=== PATIENT | female | born 1965 | race Caucasian/White ===

== ENCOUNTER 2017-11-28 22:17 | Observation (INO) ==
[2017-11-28 22:51] LABS: Basophils % 0.2 %; Eosinophils # 0.2 K/mcL (0.0-0.6); Eosinophils % 3.7 %; Hematocrit 42.6 % (35.3-44.9); Hemoglobin 13.9 g/dL (11.5-15.4); Immature Granulocytes % 0.4 % (0-4); Lymphocytes # 0.6 K/mcL (0.6-4.6); Lymphocytes % 13.1 %; Mean Corpuscular HGB Conc 32.6 g/dL (31.6-35.5); Mean Corpuscular Hemoglobin 27.4 pg (28.0-33.3); Mean Platelet Volume 9.8 fL (9.4-12.4); Monocytes # 0.5 K/mcL (0.0-1.3); Neutrophils # 3.5 K/mcL (1.6-8.9); Platelet Count 252 K/mcL (140-400); Red Blood Count 5.07 M/mcL (3.82-4.97); Red Cell Distribution Width 13.3 % (11.5-14.5); Segmented Neutrophils % 71.6 %
[2017-11-28] MEDS ORDERED: 0.9 % Sodium Chloride 1,000 ML IVC ONE (23:06)
[2017-11-28 23:07] LABS: BUN/Creatinine Ratio 18 (6-26); Blood Urea Nitrogen 14 mg/dL (6-20); Calcium 9.4 mg/dL (8.6-10.3); Carbon Dioxide 28 mEq/L (23-29); Chloride 101 mEq/L (98-107); Glucose 100 mg/dL (70-105); Osmolality,Calculated 281 (280-300); Sodium 135 mEq/L (136-145); eGFR For African Americans > 60 (> 60); eGFR For Non-African Americans > 60 (> 60)
--- NOTE | 2017-11-28 23:13 | Emergency Department Note ---
Disposition Clinical Impression: Chest pain at rest Disposition: Admitted As Inpatient Condition: Fair Time of Disposition: 01:34 Chest Pain HPI - General Chief Complaint: ED Chest Pain Stated Complaint: chest pain Time Seen by Provider: 11/28/17 22:44 Source: patient Limitations: no limitations Vital Signs Reviewed: Yes Nursing Notes Reviewed: Yes - History of Present Illness HPI Narrative: Patient is a 52-year-old female complains of sudden onset of mid substernal chest pain sharp stabbing in character with heavy crushing pressure and bilateral posterior neck pain, occipital head pain and acute loss of vision 30 minutes that started 1 hour ago. Patient states she was sitting at rest when symptoms came on. Patient states she has never had symptoms like this before. Patient states after 30 minutes she had a vision back and the symptoms of pain reduced significantly but did go a [place] until she was almost at the emergency department. Patient complains of lightheadedness and feeling off balance when she walks after the onset of symptoms. Patient currently has no pain symptoms but states she has numbing tingling feeling to her neck and back of the head. Patient did not taken nothing for pain. 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 Patient states she is not in place on any anticoagulants. Other medical history is for hypertension but not currently on medications. Severity scale (1-10): 5 - Related Data Home Medications Medication Instructions Recorded Confirmed Aspirin [Lo-Dose Aspirin EC] 81 mg PO DAILY 08/11/17 08/11/17 FLUoxetine HCl [Fluoxetine HCl] 40 mg PO DAILY 08/11/17 08/11/17 HydrOXYzine 10 mg PO QID PRN 08/11/17 08/11/17 Ibuprofen [Ibuprofen] 800 mg PO TID PRN 08/11/17 08/11/17 Previous Rx's Medication Instructions Recorded Ibuprofen [Motrin] 600 mg PO Q6HR PRN #60 tab 08/11/17 Allergies Allergy/AdvReac Type Severity Reaction Status Date / Time Penicillins Allergy Intermediate Rash Verified 11/29/17 00:13 Erythromycin Base Allergy Rash Verified 11/29/17 00:13 [From Erythrocin] All systems ED: reviewed and negative except as stated. Review of Systems: As Per HPI Constitutional: Denies: fever, chills, weakness Eyes: Reports: vision change. Denies: eye pain, eye discharge ENT ED: Denies: hearing loss, congestion Cardiovascular: Reports: chest pain. Denies: palpitations Respiratory: Reports: dyspnea. Denies: cough, wheezes Gastrointestinal: Denies: abdominal pain, nausea, vomiting, diarrhea Chest Pain PMH - Past Medical History Medical history: Reports: DVT Psychiatric history: Reports: no psych history - Social History Smoking Status: Current every day smoker Alcohol use: Reports: none Drug use: Reports: none Physical Exam Vital Signs Temperature 97.6 F 11/28/17 22:24 Pulse Rate 99 11/28/17 22:24 Respiratory Rate 20 11/28/17 22:24 Blood Pressure 153/100 11/28/17 22:24 O2 Sat by Pulse Oximetry 98 11/28/17 22:24 Temperature 97.6 F 11/28/17 22:24 Pulse Rate 99 11/28/17 22:24 Respiratory Rate 20 11/28/17 22:24 Blood Pressure 153/100 11/28/17 22:24 O2 Sat by Pulse Oximetry 98 11/28/17 22:24 Oxygen Delivery Oxygen Delivery Room Air CONSTITUTIONAL: Well-appearing; well-nourished; A&O X 3, in no apparent distress, GCS 15, NIH stroke score of 1 HEAD: Normocephalic; atraumatic EYES: PERRL, no scleral icterus NOSE: The nose is normal in appearance without rhinorrhea NECK: No JVD or distended neck veins RESP: Normal chest excursion with respiration; breath sounds clear and equal bilaterally; no wheezes, rhonchi, or rales CARD: Regular rhythm, without murmurs, rub or gallop ABD: Non-distended; non-tender, soft, without rigidity, rebound or guarding,no pulsatile mass CHEST: No pain with palpation SKIN: Normal for age and race; warm and dry without diaphoresis ; no apparent lesions EXTREMITIES: Pulses are 2 plus and equal times 4 extremities, no peripheral edema or calf muscle pain NEUROLOGICAL: Patient is alert and oriented times three. Cranial nerves III- XII are intact. Sensory and motor functions are intact but slightly diminished in the right cheek and right lower extremity. Strength is 5/5 for flexion and extension in all 4 extremities. Patellar DTRS are equal and intact. Finger to nose testing is equal and normal bilaterally. No dysdiadochokinesis, she was ambulated in the room and was able to walk without falling. Patient is able to stand with eyes closed with no complete loss of balance. She teetered backwards slightly but was able to compensate without opening her eyes. - General Limitations: no limitations General appearance: alert, in no apparent distress Course - Reevaluation(s) Reevaluation #1: Patient currently has no numbness in her foot. Patient states that her vision is fully clear now. Time: 23:24 Reevaluation #2: Patient doing well. No complaints. Patient's loss of sensation to the right cheek also resolved. Time: 23:53 Reevaluation #3: Patient was updated on the results of her CTs which showed no vascular abnormalities. But did show Asymmetric glandular right breast soft tissue only. Patient is advised for immediate follow-up for mammography. Time: 01:24 - Consultations Consultation #1: I discussed patient's case with Dr. Tadeo the hospitalist. Abdomen the patient is in stable condition currently. No vascular abnormalities found on advanced imaging, however patient has Asymmetric glandular right breast soft tissue only. He states he will investigate further. Time: 01:27 Vital Signs Temperature 97.6 F 11/28/17 22:24 Pulse Rate 99 11/28/17 22:24 Respiratory Rate 20 11/28/17 22:24 Blood Pressure 153/100 11/28/17 22:24 O2 Sat by Pulse Oximetry 98 11/28/17 22:24 Temperature 97.6 F 11/28/17 22:24 Pulse Rate 93 11/29/17 01:32 Respiratory Rate 18 11/29/17 01:32 Blood Pressure 125/76 11/29/17 01:32 O2 Sat by Pulse Oximetry 98 11/29/17 01:32 Oxygen Delivery Oxygen Delivery Room Air Chest Pain - MDM Narrative Medical decision making narrative: Patient's concerning for possible vertebral artery dissection/carotid artery dissection, TIA/stroke, ACS/TX, PE aortic dissection. Patient has previous history of unprovoked DVT but is still low risk on Wells score for PE: No clinical signs of DVT, PE is not my #1 diagnosis, heart rate is less than 100, she has not had any immobilization for 3 days or surgery in the previous 4 weeks, she denies hemoptysis and denies history of malignancy. CBC, BMP, troponin and chest x-ray ordered for concern of ACS/TX. CT head non- contrast and CTA head and neck ordered for concerns for vertebral artery/ carotid artery dissection. His heart score is 3 Patient's lab work was clinically unremarkable. Patient advanced imaging studies negative for vertebral artery dissection, carotid artery dissection, aortic dissection, AAA. However Asymmetric glandular right breast soft tissue per radiology was identified on CT a chest. Patient has been updated on these findings and mammography was highly recommended. Patient states she will make the necessary follow-up. They should accepts this and for admission for further cardiac evaluation. Patient is accepted for admission by Dr. Siu hospitalists in stable condition. Patient is currently pain-free. - Lab Data Lab results reviewed: Yes I reviewed the patient's lab results. Lab results narrative: Short CBC 11/28/17 Range/Units 22:44 WBC 4.9 (4.3-11.1) K/mcL Hgb 13.9 (11.5-15.4) g/dL Hct 42.6 (35.3-44.9) % Plt Count 252 (140-400) K/mcL Neutrophils # 3.5 (1.6-8.9) K/mcL BMP 11/28/17 Range/Units 22:44 Sodium 135 L (136-145) mEq/L Potassium 4.0 (3.5-5.1) mEq/L Chloride 101 (98-107) mEq/L Carbon Dioxide 28 (23-29) mEq/L BUN 14 (6-20) mg/dL Creatinine 0.77 (0.60-1.20) mg/dL Glucose 100 (70-105) mg/dL Calcium 9.4 (8.6-10.3) mg/dL Cardiac Enzymes 11/28/17 Range/Units 22:44 Troponin I < 0.03 (< 0.04) ng/mL Result diagrams: 11/28/17 22:44 11/28/17 22:44 Lab Results 11/28/17 11/28/17 11/28/17 Range/Units 22:44 22:44 22:44 WBC 4.9 (4.3-11.1) K/mcL RBC 5.07 H (3.82-4.97) M/mcL Hgb 13.9 (11.5-15.4) g/dL Hct 42.6 (35.3-44.9) % MCV 84.0 (83.0-100.0) fL MCH 27.4 L (28.0-33.3) pg MCHC 32.6 (31.6-35.5) g/dL RDW 13.3 (11.5-14.5) % Plt Count 252 (140-400) K/mcL MPV 9.8 (9.4-12.4) fL Immature Gran % 0.4 (0-4) % Seg Neutrophils % 71.6 % Lymphocytes % 13.1 % Monocytes % 11.0 % Eosinophils % 3.7 % Basophils % 0.2 % Neutrophils # 3.5 (1.6-8.9) K/mcL Lymphocytes # 0.6 (0.6-4.6) K/mcL Monocytes # 0.5 (0.0-1.3) K/mcL Eosinophils # 0.2 (0.0-0.6) K/mcL Basophils # 0.0 (0.0-0.2) K/mcL PT (9.4-12.1) Seconds INR APTT (26.0-36.0) Seconds Sodium 135 L (136-145) mEq/L Potassium 4.0 (3.5-5.1) mEq/L Chloride 101 (98-107) mEq/L Carbon Dioxide 28 (23-29) mEq/L BUN 14 (6-20) mg/dL Creatinine 0.77 (0.60-1.20) mg/dL Est GFR ( Amer) > 60 (> 60) Est GFR (Non-Af Amer) > 60 (> 60) BUN/Creatinine Ratio 18 (6-26) Glucose 100 (70-105) mg/dL Calculated Osmolality 281 (280-300) Calcium 9.4 (8.6-10.3) mg/dL Troponin I < 0.03 (< 0.04) ng/mL 11/28/17 Range/Units 22:44 WBC (4.3-11.1) K/mcL RBC (3.82-4.97) M/mcL Hgb (11.5-15.4) g/dL Hct (35.3-44.9) % MCV (83.0-100.0) fL MCH (28.0-33.3) pg MCHC (31.6-35.5) g/dL RDW (11.5-14.5) % Plt Count (140-400) K/mcL MPV (9.4-12.4) fL Immature Gran % (0-4) % Seg Neutrophils % % Lymphocytes % % Monocytes % % Eosinophils % % Basophils % % Neutrophils # (1.6-8.9) K/mcL Lymphocytes # (0.6-4.6) K/mcL Monocytes # (0.0-1.3) K/mcL Eosinophils # (0.0-0.6) K/mcL Basophils # (0.0-0.2) K/mcL PT 10.7 (9.4-12.1) Seconds INR 1.0 APTT 30.2 (26.0-36.0) Seconds Sodium (136-145) mEq/L Potassium (3.5-5.1) mEq/L Chloride (98-107) mEq/L Carbon Dioxide (23-29) mEq/L BUN (6-20) mg/dL Creatinine (0.60-1.20) mg/dL Est GFR ( Amer) (> 60) Est GFR (Non-Af Amer) (> 60) BUN/Creatinine Ratio (6-26) Glucose (70-105) mg/dL Calculated Osmolality (280-300) Calcium (8.6-10.3) mg/dL Troponin I (< 0.04) ng/mL - Radiology Data Radiology results reviewed: Yes I reviewed the patient's radiology results. Chest X-Ray 11/28/17 22:28 IMPRESSION: No acute findings. D/ / Gianluca Alcala / Gianluca Alcala Interpreting Provider: Gianluca Alcala Angiography CT 11/28/17 23:03 IMPRESSION: 1. No acute intracranial abnormality. 2. Unremarkable CTA of the head. D/ / Eitan Cast MD / Eitan Cast MD Interpreting Provider: Eitan Cast MD Neck CTA 11/28/17 23:03 IMPRESSION: Unremarkable CTA of the neck. D/ / Eitan Cast MD / Eitan Cast MD Interpreting Provider: Eitan Cast MD Chest CTA 11/28/17 23:37 IMPRESSION: No evidence of an acute aortic syndrome. No acute nonvascular findings in the chest, abdomen or pelvis. Mild mediastinal lymphadenopathy, right supraclavicular and axillary lymph lymphadenopathy is nonspecific. Prior comparison imaging would be helpful available. Otherwise consider follow-up imaging in 3 months. Mildly asymmetric right breast glandular tissues compared with the left. Correlate with mammography. Mild hepatosplenomegaly with hepatic steatosis. D/ / Gianluca Alcala / Gianluca Alcala Interpreting Provider: Gianluca Alcala Abdomen/Pelvis CTA 11/28/17 23:38 IMPRESSION: No evidence of an acute aortic syndrome. No acute nonvascular findings in the chest, abdomen or pelvis. Mild mediastinal lymphadenopathy, right supraclavicular and axillary lymph lymphadenopathy is nonspecific. Prior comparison imaging would be helpful available. Otherwise consider follow-up imaging in 3 months. Mildly asymmetric right breast glandular tissues compared with the left. Correlate with mammography. Mild hepatosplenomegaly with hepatic steatosis. D/ / Gianluca Alcala / Gianluca Alcala Interpreting Provider: Gianluca Alcala - EKG Data EKG attestation: Yes I reviewed and interpreted this EKG. EKG results narrative: EKG taken 2017 at 2229 hrs. shows sinus rhythm at a rate of [address] elevations or depressions in any leads, no QRS widening or QT prolongation. Patient has no previous EKG for comparison. No Brugada, no Wellens Heart Score - Score History: Moderately Suspicious EKG: Normal Age: 45-65 Risk Factors: 1-2 risk factors Troponin: Less than normal limit HEART Score Total: 3 Attestation Statement - Attestation Attestation: I examined this patient and my medical decision-making was reviewed with the Resident Physician. I agree with the documented findings, disposition and treatment plan as described except to the extent set forth below. Patient to the ED with chest pain. Patient states she was sitting at home talking to her and she expressed chest pain that shot into her back. States it lasted about 20-30 minutes and resolved spontaneously. She felt really off balance and shaky after happened. This is resolved. She states she feels back to normal now. No history of coronary disease. Patient awake and alert on examination. She is neurologically intact for me. NIH 0. Lungs clear. Plan. Cardiac workup a CTA chest abdomen pelvis to rule out dissection.
[2017-11-28 23:32] LABS: Prothrombin Time 10.7 Seconds (9.4-12.1)
[2017-11-28 23:35] LABS: Activated Partial Thrombo Time 30.2 Seconds (26.0-36.0)
[2017-11-29] MEDS ORDERED: Naloxone 0.4 MG/ML INJ IVP PRN (02:43)
[2017-11-29] MEDS ORDERED: Acetaminophen 325 MG TABLET PO PRN (02:48)
[2017-11-29] MEDS ORDERED: Ondansetron 4 MG/2 ML VIAL IVP PRN (02:48)
[2017-11-29] MEDS ORDERED: *HR* Promethazine 25 MG/ML VIAL IVP PRN (02:48)
[2017-11-29] MEDS ORDERED: *HR* HYDROcodone/Acet 5/325 mg TABLET PO PRN (02:48)
[2017-11-29] MEDS ORDERED: Nitroglycerin 0.4 MG TAB.SUBL SL PRN (02:51)
--- NOTE | 2017-11-29 04:13 | Internal Med History&Physical ---
Date of Encounter: 11/29/17 Time of Encounter: 01:30 Assessment and Plan (1) Chest pain Current visit: Yes Status: Acute Will admit the pt into Tele for observation Will place pt on hall monitor check serial troponin so far negative troponin EKG reviewed NSR , NO ST T changes noticed will continue pt on ASA and give Nitro PRN for chest pain Will check FLP in AM Will get stress test in AM since pt is high risk for ACS Qualifiers: Qualified Code(s): R07.9 - Chest pain, unspecified (2) HTN (hypertension) Current visit: Yes Status: Acute stable and well controlled resumed home meds Qualifiers: Qualified Code(s): I10 - Essential (primary) hypertension (3) Axillary lymphadenopathy Current visit: Yes Status: Acute Reviewed CTA of Chest showed axillary and supra clavicular lymphadenopathy on Rt side also her Rt breast glandular tissue was asymmetric compare to left need further work up .. Mammogram will get U/S of Rt breast for now Unable to do physical exam in the ER (4) Anxiety Current visit: Yes Status: Acute resumed home meds Internal Medicine - H&P: HPI Chief complaint: Chest pain Admitted From: Emergency Dept Plans for Post Hospital Care: Home History of present illness: Ms. Springer is a 52 year old female with known anxiety, depression who also had DVT in the past, now she presented to ER with c/o Left chest pain radiating to her neck and back of the head. She stated her pain was 6/10, crushing / pressure like pain and relieved with Nitro here in the ER. She also c/o some left breast pain. Denied any SOB . Pt had further work up done in the ER, had CTA of Head, CTA of Neck, Chest, Abd and Plevis everything was benign except mild mediastinal lymphadenopathy, rt supra clavicular and axillary lymphadenopathy . Also noticed mild asymmetric Rt breast glandular tissue compared to the left. Past Med Surg Social Fam HX - Past Medical History Medical history: DVT Psychiatric history: no psych history - Social History Smoking Status: Current every day smoker Smokeless Tobacco Status: No Alcohol use: none Drug use: none - Family History Brother Hx Family Cardiac Disorders: Yes (Had TX in 40's) Father Hx Family Cardiac Disorders: Yes (Had TX in 40's) Internal Medicine - H&P: Meds Aspirin [Lo-Dose Aspirin EC] 81 mg PO DAILY 08/11/17 [History] FLUoxetine HCl [Fluoxetine HCl] 40 mg PO DAILY 08/11/17 [History] HydrOXYzine 10 mg PO QID PRN 08/11/17 [History] Ibuprofen [Ibuprofen] 800 mg PO TID PRN 08/11/17 [History] Ibuprofen [Motrin] 600 mg PO Q6HR PRN #60 tab 08/11/17 [Rx] 3 Allergy/AdvReac Type Severity Reaction Status Date / Time Penicillins Allergy Intermediate Rash Verified 11/29/17 00:13 Erythromycin Base Allergy Rash Verified 11/29/17 00:13 [From Erythrocin] All Systems PM: A 10-system review of systems was performed and is negative for pertinent findings except as documented above in the HPI. Review of systems: All the systems are reviewed everything is benign except the systems and symptoms I mentioned in the history of present illness - Constitutional Vitals: Temp Pulse Resp BP Pulse Ox 98.1 F 89 16 116/65 96 11/29/17 03:54 11/29/17 03:54 11/29/17 03:54 11/29/17 03:54 11/29/17 03:54 General appearance: Present: cooperative, A&O X 3, answers questions appropriately - Head Head exam: Present: atraumatic, normal inspection - Neck Neck exam general surgery: Present: supple - Respiratory Respiratory exam: Present: decreased breath sounds. Absent: rales, respiratory distress, rhonchi, wheezes - Cardiovascular Cardiovascular exam: Present: RRR, +S1, +S2. Absent: tachycardia - GI/Abdominal GI/Abdominal exam: Present: normal bowel sounds, soft. Absent: rebound, rigid, tenderness - Extremities Exam Extremities exam: Absent: calf tenderness, pedal edema, tenderness - Back Exam Back exam: Absent: CVA tenderness (L), CVA tenderness (R) - Neurological Exam Neurological exam: Present: alert, oriented X3, reflexes normal, no focal deficits, strengths equal and symetr throughout. Absent: pronater drift, facial droop, speech deficit - Psychiatric Psychiatric exam: Present: normal affect, normal mood - Skin Skin exam: Absent: rash Internal Med - H&P Results - Labs CBC & Chem 7: 11/28/17 22:44 11/28/17 22:44
[2017-11-29 05:15] LABS: Chol/HDL Ratio 5.6 (0-4.9)
[2017-11-29] MEDS: FLUoxetine 20 MG CAPSULE PO SCH (08:18)
[2017-11-29] MEDS: Aspirin Enteric Coated 81 MG Tablet PO SCH (08:18)
[2017-11-29] MEDS ORDERED: 0.9 % Sodium Chloride 1,000 ML ONE (14:38)
[2017-11-29] MEDS: Heparin 25,000 UNIT/500 ML D5W 25,000 UNIT/500 ML BAG IVC SCH (14:51)
--- NOTE | 2017-11-29 17:10 | Event Note ---
Date of Encounter: 11/29/17 Time of Encounter: 14:00 Seen and examined at bedside. Patient is new to me, information obtained from chart review and patient report. In summary patient is a 52-year-old female with no known cardiac disease. Presented to the emergency room with acute episode of chest pain and shortness of breath. Initial troponin negative however trended up to 0.11. Chest pain now resolved. 1. Chest pain: Presented with acute episode of chest pain and shortness of breath. CXR nonacute. Chest CTA negative for pulmonary embolism or acute aortic syndrome. Serial troponins 0.03, 0.08, 0.11. Discussed with cardiology and will start heparin drip, NPO at midnight. Echo pending. Cont ASA. 2. Hyperlipidemia: start statin
[2017-11-29] MEDS ORDERED: *HR* Heparin 5,000 UNIT/ML VIAL IVP PRN ×2 (22:09)
[2017-11-30 05:47] LABS: BUN/Creatinine Ratio 19 (6-26); Blood Urea Nitrogen 12 mg/dL (6-20); Calcium 8.9 mg/dL (8.6-10.3); Carbon Dioxide 27 mEq/L (23-29); Chloride 107 mEq/L (98-107); Glucose 103 mg/dL (70-105); Osmolality,Calculated 288 (280-300); Potassium 4.1 mEq/L (3.5-5.1); Sodium 139 mEq/L (136-145); eGFR For African Americans > 60 (> 60); eGFR For Non-African Americans > 60 (> 60)
[2017-11-30 05:48] LABS: Hematocrit 36.2 % (35.3-44.9); Mean Corpuscular Hemoglobin 27.4 pg (28.0-33.3); Mean Corpuscular Volume 85.6 fL (83.0-100.0); Mean Platelet Volume 10.5 fL (9.4-12.4); Platelet Count 186 K/mcL (140-400); Red Blood Count 4.23 M/mcL (3.82-4.97); Red Cell Distribution Width 13.6 % (11.5-14.5)
[2017-11-30 05:51] LABS: Hemoglobin 11.6 g/dL (11.5-15.4)
[2017-11-30] MEDS ORDERED: Regadenoson 0.4 MG/5 ML SYRINGE IVP ONE (07:17)
[2017-11-30] MEDS: Perflutren Lipid Microsphere 1.3 ML in 0.9 % Sodium Chloride 8.7 ML IVP ONE ×2 (08:46→08:55)
[2017-11-30] MEDS: Aspirin Enteric Coated 81 MG Tablet PO SCH (08:49)
[2017-11-30] MEDS: FLUoxetine 20 MG CAPSULE PO SCH (08:49)
--- NOTE | 2017-11-30 09:11 | Cardiology Consult Note ---
<Jeffry Sanchez - Last Filed: 11/30/17 10:53> Date of Encounter: 11/30/17 Time of Encounter: 09:09 Assessment and Plan (1) NSTEMI (non-ST elevated myocardial infarction) Current Visit: Yes Status: Acute Troponin elevation, 0.08, 0.11, 0.08. EKG shows SR with no acute changes. CTA was negative for PE. Cardiac risk factors include family history, HTN, HLD. C R/B/A discussed and she agrees to proceed. Heprin gtt. Asa, statin, and bb. (2) HTN (hypertension) Current Visit: Yes Status: Acute B/p 150/100 on admit. Now acceptable.Continue to monitor. Qualifiers: Hypertension type: essential hypertension Qualified Code(s): I10 - Essential (primary) hypertension Discussion w patient/family: The assessment and plan as outlined above was discussed with the patient and/or family members who expressed understanding and agreement. All questions were answered. Thank you for involving us in the care of your patient. Please call with any questions. History of Present Illness Consult date: 11/30/17 Requesting physician: Luz Maria Shearer Consult reason: Chest pain, trop elevation Chief complaint: Chest pain History of present illness: Ms. Springer is a 52 year old female with a past medical history of HTN and HLD who presents with chest pain. C/o 30 min to one hour of midsternal sharp chest pain radiating to the back of her neck and head. She also experienced SOB and nausea. The pain went away on its own. Denies aggravating factors. Cardiology consulted for NSTEMI. Troponin found to be elevated up to 0.11. Past Med Surg Social Fam HX - Past Medical History Attestation: Yes The following information was validated with the patient. Medical history: hyperlipidemia, hypertension Psychiatric history: anxiety, depression, PTSD, prior suicide attempt - Past Surgical History Surgical History: appendectomy, , cholecystectomy - Social History Smoking Status: 2nd Hand Smoke Exposure Smokeless Tobacco Status: No Alcohol use: none Drug use: none - Family History Brother Hx Family Cardiac Disorders: Yes (Had [place] in 40's) Father Hx Family Cardiac Disorders: Yes (Had [place] in 40's) Medications and Allergies Aspirin [Lo-Dose Aspirin EC] 81 mg PO DAILY 08/11/17 [History] FLUoxetine HCl [Fluoxetine HCl] 40 mg PO DAILY 08/11/17 [History] HydrOXYzine 25 mg PO BID PRN 08/11/17 [History] Ibuprofen [Ibuprofen] 800 mg PO TID PRN 08/11/17 [History] 3 Allergy/AdvReac Type Severity Reaction Status Date / Time Penicillins Allergy Intermediate Rash Verified 11/29/17 00:13 Erythromycin Base Allergy Rash Verified 11/29/17 00:13 [From Erythrocin] All Systems Review: A 10-system review of systems was performed and is negative for pertinent findings except as documented above in the HPI. Physical Examination Vital Signs, Last 4 Hours Temp Pulse Resp BP Pulse Ox 11/30/17 08:45 97 11/30/17 07:09 98.7 F 78 16 127/76 97 General: Conversant, No Apparent Distress HEENT: Atraumatic, Normocephaly, Mucus Membranes Moist Neck: No JVD, Normal carotid pulses Cardiac: Reg Rate and Rhythm, Normal S1 and S2, No Murmur Lungs: Normal Breath Sounds, No Wheeze, Rales, Rhonchi Neuro: Alert and responsive, No focal deficits noted Abdomen: Soft, Non-Tender Skin: No rashes noted on visualized skin Musculoskeletal: No Chest Wall Tenderness Extremities: No Clubbing, No Cyanosis, No Edema, Normal Pulses Results 11/30/17 04:38 11/30/17 04:38 Lab Results 11/29/17 11/29/17 11/29/17 09:14 13:47 17:43 WBC Hgb Hct Plt Count APTT 29.6 43.9 H Sodium Potassium Chloride Carbon Dioxide BUN Creatinine Glucose Calcium Troponin I 0.11 H* 11/29/17 11/29/17 11/30/17 17:43 21:09 04:38 WBC 3.2 L Hgb 11.6 D Hct 36.2 Plt Count 186 APTT 50.2 H Sodium Potassium Chloride Carbon Dioxide BUN Creatinine Glucose Calcium Troponin I 0.06 H* 11/30/17 11/30/17 04:38 04:38 WBC Hgb Hct Plt Count APTT 75.6 H D Sodium 139 Potassium 4.1 Chloride 107 Carbon Dioxide 27 BUN 12 Creatinine 0.63 Glucose 103 Calcium 8.9 Troponin I - Imaging and Cardiology Echo: pending Cardiac cath: pending - EKG Interpretation EKG results cardiology: personally reviewed Consult Discharge Plan - Plan Referrals: Sierra Sales, RAISIN WASHER [Primary Care Provider] - <Amy Lerma - Last Filed: 11/30/17 18:02> Date of Encounter: 11/30/17 - Attending Attestation I examined this patient and my medical decision-making was reviewed with the RAISIN WASHER. I agree with the documented findings, disposition and treatment plan as described. Ms. Springer presents with chest pain and troponin elevation. ECG without acute findings. Risk factors include female gender, HTN, dyslipidemia and family history. Recommend proceeding with [facility] for NSTEMI - chest pain and elevated troponins in a patient with risk factors. R/B/A of the procedure were discussed with the patient and family members at bedside. The patient expressed understanding and agreement to proceed. Further recommendations to follow testing. Assessment and Plan Discussion w patient/family: The assessment and plan as outlined above was discussed with the patient and/or family members who expressed understanding and agreement. All questions were answered. Thank you for involving us in the care of your patient. Please call with any questions. History of Present Illness History of present illness: Ms. Springer is a 52 year old female All Systems Review: A 10-system review of systems was performed and is negative for pertinent findings except as documented above in the HPI. Physical Examination Vital Signs, Last 4 Hours Temp Pulse Resp BP Pulse Ox 11/30/17 12:22 99.3 F 81 16 113/61 96 Results 11/30/17 04:38 11/30/17 04:38 Lab Results 11/29/17 11/29/17 11/29/17 13:47 17:43 17:43 WBC Hgb Hct Plt Count APTT 29.6 43.9 H Sodium Potassium Chloride Carbon Dioxide BUN Creatinine Glucose Calcium Troponin I 0.06 H* 11/29/17 11/30/17 11/30/17 21:09 04:38 04:38 WBC 3.2 L Hgb 11.6 D Hct 36.2 Plt Count 186 APTT 50.2 H Sodium 139 Potassium 4.1 Chloride 107 Carbon Dioxide 27 BUN 12 Creatinine 0.63 Glucose 103 Calcium 8.9 Troponin I 11/30/17 11/30/17 04:38 12:16 WBC Hgb Hct Plt Count APTT 75.6 H D 68.5 H Sodium Potassium Chloride Carbon Dioxide BUN Creatinine Glucose Calcium Troponin I
--- NOTE | 2017-11-30 14:21 | Internal Med Progress Note ---
Date of Encounter: 11/30/17 Time of Encounter: 11:00 - Assessment and plan (1) Chest pain Current Visit: Yes Status: Acute Assessment and plan: presented with acute episode of chest pain and shortness of breath. CXR nonacute. Chest CTA negative for pulmonary embolism or acute aortic syndrome. Serial troponins 0.03, 0.08, 0.11. TTE with EF 55-60% and mild diastolic dysfunction, no wall motion abnormalities. [facility] planned for 11/30. Cardiology following. Continue ASA, heparin drip Qualifiers: Qualified Code(s): R07.9 - Chest pain, unspecified (2) Axillary lymphadenopathy Current Visit: Yes Status: Acute Assessment and plan: Chest CTA showed right axillary and supra clavicular lymphadenopathy and Rt breast glandular tissue was asymmetric compared to left. Right breast ultrasound pending. Will need mammogram outpatient and repeat chest CT in 3 months. (3) HTN (hypertension) Current Visit: Yes Status: Acute Assessment and plan: per hx. BP controlled. Cont home BP medications Qualifiers: Hypertension type: essential hypertension Qualified Code(s): I10 - Essential (primary) hypertension (4) Anxiety Current Visit: Yes Status: Acute Assessment and plan: per hx. Cont home medications (5) DVT prophylaxis Current Visit: Yes Status: Acute Assessment and plan: heparin gtt - Subjective Interval history: Seen and examined at bedside. Sitting up on edge of bed, says she feels at baseline. No further chest pain. She is aware of plan for left heart catheterization today. She has no questions or concern at this time. - Constitutional Vitals: Temp Pulse Resp BP Pulse Ox 99.3 F 81 16 113/61 96 11/30/17 12:22 11/30/17 12:22 11/30/17 12:22 11/30/17 12:22 11/30/17 12:22 General appearance: Present: cooperative, A&O X 3, morbidly obese, answers questions appropriately - Head Head exam: Present: atraumatic, normocephalic - Eye Eye exam: Present: PERRL, conjuntiva pink, sclera anicteric Pupils: Present: PERRL - Neck Neck exam general surgery: Present: supple, trachea midline. Absent: lymphadenopathy - Respiratory Respiratory exam: Present: CTAB. Absent: accessory muscle use, rales, rhonchi, wheezes - Cardiovascular Cardiovascular exam: Present: RRR, +S1, +S2. Absent: diastolic murmur, gallop, rubs, systolic murmur - GI/Abdominal GI/Abdominal exam: Present: normal bowel sounds, soft, no peritoneal signs. Absent: distended, tenderness - Extremities Exam Extremities exam: Present: warm, radial pulses palpable and symmetrical. Absent : calf tenderness, cyanotic, pedal edema - Neurological Exam Neurological exam: Present: CN II-XII intact, oriented X3, no focal deficits. Absent: pronater drift, facial droop, speech deficit - Skin Skin exam: Present: dry, intact Internal Medicine: Result - Labs CBC & Chem 7: 11/30/17 04:38 11/30/17 04:38 Labs: Short CBC 11/30/17 Range/Units 04:38 WBC 3.2 L (4.3-11.1) K/mcL Hgb 11.6 D (11.5-15.4) g/dL Hct 36.2 (35.3-44.9) % Plt Count 186 (140-400) K/mcL BMP 11/30/17 04:38 Sodium 139 Potassium 4.1 Chloride 107 Carbon Dioxide 27 BUN 12 Creatinine 0.63 Glucose 103 Calcium 8.9 Cardiac Enzymes 11/29/17 Range/Units 17:43 Troponin I 0.06 H* (< 0.04) ng/mL - ABG Interpretation ABG results: PT/INR, D-dimer PT 10.7 Seconds (9.4-12.1) 11/28/17 22:44 - Impressions Impressions Echocardiogram 11/30/17 07:30 Impressions: Technically sub-optimal due to body habitus. LVEF 55-60%. Normal LV chamber size, wall thickness and function. Mild left ventricular diastolic dysfunction. Right ventricular size not well visualized. Overall, function appear normal. Unable to estimate RVSP due to lack of TR jet. No obvious significant valvular dysfunction. Left Ventricular Wall Motion: Rest Echo Findings All wall segments showed normal motion. Findings: Study Quality * Technically sub-optimal due to body habitus. ECG Findings * Normal sinus rhythm. Left Ventricle * LVEF 55-60%. * Normal LV chamber size, wall thickness and function. * Mild left ventricular diastolic dysfunction. Right Ventricle * Right ventricular size not well visualized. Overall, function appear normal. Left Atrium * Normal left atrial size. Right Atrium * Normal right atrial size. Interatrial Septum * Interatrial septum not well evaluated. Aortic Valve * Aortic valve not well visualized. * No aortic regurgitation. * No aortic stenosis. Mitral Valve * Normal mitral valve structure and function. * No mitral regurgitation. * No mitral stenosis. Tricuspid Valve * Normal tricuspid valve structure and function. * No tricuspid regurgitation. * Unable to estimate RVSP due to lack of TR jet. Pulmonic Valve * Pulmonic valve not well visualized. * No pulmonic regurgitation. Aorta * Normally sized aortic root. Pericardium * The pericardium appears normal. IVC * The IVC is not well evaluated. Pulmonary Artery * Pulmonary artery not well visualized. Consult Discharge Plan - Plan Referrals: Sierra Sales, [employer]INEER [Primary Care Provider] -
[2017-11-30] MEDS: Heparin 25,000 UNIT/500 ML D5W 25,000 UNIT/500 ML BAG IVC SCH (16:05)
[2017-11-30] MEDS ORDERED: 0.9 % Sodium Chloride 1,000 ML ONE (16:57)
[2017-11-30] MEDS ORDERED: Heparin 1,000 UNITS/500 mL 500 ML ONE (16:58)
[2017-11-30] MEDS ORDERED: Nitroglycerin 1,000 MCG/10 ML VIAL IV ONE (16:58)
[2017-11-30] MEDS ORDERED: *HR* Heparin 10,000 UNIT/10 ML VIAL ONE (16:58)
--- NOTE | 2017-11-30 16:58 | Electrocardiograph Report ---
[place] [id number] Test Date: 2017-11-28 Pat Name: Sera Springer Department: 104 Room: 3B Gender: F Continuous Improvement Intern: EUGENE : 1965 Requested By: Bria See Order Number: [id number] Reading MD: Idris Ramesh DO Measurements Intervals [place] Rate: 91 P: 46 OR: 156 QRS: 16 QRSD: 81 T: 32 QT: 367 QTc: 416 Interpretive Statements SINUS RHYTHM LOW QRS VOLTAGE IN PRECORDIAL LEADS Electronically Signed On 11-30-2017 16:56:51 EST by Idris Ramesh DO
[2017-11-30] MEDS ORDERED: ISOVUE-370 200 ML INFUS..BTL IV ONE (17:03)
--- NOTE | 2017-11-30 17:14 | Pre-Sedation Evaluation ---
Pre-sedation evaluation - Pre-sedation checklist Date of procedure: 11/30/17 Procedure: [facility] Recent Vitals: Last Vital Signs Temp 98.6 F 11/30/17 15:38 Pulse 69 11/30/17 15:38 Resp 16 11/30/17 15:38 BP 129/80 11/30/17 15:38 Pulse Ox 97 11/30/17 15:38 H&P (including ROS) documented in medical record: Yes Previous reaction to sedatives/anesthetics: No Dietary Status: NPO after Midnight Dentition: No loose teeth or bridges ASA Classification *see protocol: CLASS II-Mild systemic disease Plan of Care: Pt appropriate candidate for procedure/moderate/conscious sedation
[2017-11-30] MEDS ORDERED: *HR* Midazolam HCl 2 MG/2 ML VIAL ONE (17:17)
[2017-11-30] MEDS ORDERED: *HR* FentaNYL (PF) 100 MCG/2 ML VIAL ONE (17:17)
--- NOTE | 2017-11-30 17:57 | Invasive Diagnostic Lab Proc ---
Name: Sera Springer Date of Study: 11/30/2017 Date: 1965 Ht: 63.0in Medical Record#: [id number] Age: 52 Wt: 266.76lb Gender: Female BSA: 2.19 Order #: [id number] BMI: 47.27 Physicians Procedure Physician: Jesse Staley MD Referring MD: Referring MD: Staff Name Position Time In Brianna, Aries RN Monitor 05:13 PM Connie Fox RT Scrub 05:13 PM Tere Garcia RN Lithopress Operator 05:13 PM Indications Indication Non-Stemi Procedures Performed Procedure L HRT ARTERY/VENTRICLE ANGIO Pre-Procedure Checklist Informed consent is complete signed and on chart. H&P is on chart. ID band is on and ID verified with patient. Patient NPO for procedure The procedure was described for the patient and questions were answered. ECG is on chart. Plan of Care Patient will tolerate the procedure without complications. Adequate level of comfort will be maintained. Hemodynamics will remain stable Patient will recover from procedure without complications. Respiratory function will be maintained. Cardiac rhythm will remain stable. Patient temperature will be maintained. Patient and/or family have verbalized understanding of the procedure. Patient Education Chief Complaint/Reason for Test: Cardiac Cath Developmental Category: Adult (18-64 years) Developmentally Appropriate for Age: Yes Learning Barriers: None Education Needs: Procedure Education Method: Verbal Information Taught: Cardiac Cath Educational Evaluation: Able to repeat information Intravenous Access Time IV Size Location DC'd Fluid/Drip Rate Units RN 18g 1 1/" Patent On Arrival 0.9NaCl Allergies PCN,E-MYCIN PCN (penicillin) Erythromycin Penicillins Erythromycin Base Vital Signs Time BP (mmHg) HR (bpm) O2 Sat. RR (bpm) LOC 05:14 PM / % 5 = Fully awake and oriented or at pre-proc level 05:17 PM 159 / 101 80 99 % 05:22 PM 168 / 98 71 100 % 05:27 PM 165 / 108 77 100 % 16 05:32 PM 157 / 94 78 100 % 12 05:37 PM 153 / 97 86 100 % 23 05:42 PM 160 / 92 80 100 % 16 Procedural Medications Time Medication Dose Units Method Given By 05:14 PM Oxygen 2 L/min nasal cannula Tere Garcia RN 05:20 PM Versed 1 mg Intravenous Tere Garcia RN 05:20 PM Fentanyl 50 mcg Intravenous Tere Garcia RN 05:31 PM Lidocaine 1% 19 ml Subcutaneous Jesse Staley MD ASA Classification: CLASS II- Mild systemic disease (i.e. well-controlled diabetes, hypertension, asthma, cigarette smoking) Sena Score Preprocedure Postprocedure Activity 2- Moves 4 extremities sustained head lift Activity 2- Moves 4 extremities sustained head lift Circulation 2- SBP +/= 20 points of pre-anesthetic level Circulation 2- SBP +/= 20 points of pre-anesthetic level Consciousness 2- Awake and alert oriented x 3 Consciousness 2- Awake and alert oriented x 3 O2 Saturation 2- Able to maintain O2 satruation of 92% on room air O2 Saturation 2- Able to maintain O2 satruation of 92% on room air Respiratory 2- Able to deep breathe and cough well Respiratory 2- Able to deep breathe and cough well Total Score 10 Total Score 10 Contrast Agent: Isovue Diagnostic Contrast: 35 ml Total Contrast: 35 ml Fluoro Dose: 258 mGy Activated Clotting Time Time Seconds to Clot 05:40 PM 150 Procedure Log Time Note Enter By 05:13 PM Pt arrived to geophysical laboratory director 2 at 17:13 [facility] 05:13 PM Aries Reed RN Position: Monitor Time in: 17:13 [facility] 05:13 PM Connie Fox Position: Scrub Time in: 17:13 05:13 PM Tere Garcia RN Position: Lithopress Operator Time in: 17:13 [facility] 05:13 PM Patient charges- Angio tray pack, Navilyst 3mm J, Pulse Oximetry and ACIST tubing and transducer 05:13 PM Hair removed from procedure site in procedure lab using clippers. Bilateral groin prepped with Chloraprep by Connie Fox RT, then patient was draped. Skin intact. 05:14 PM Physician arrived 17:14 [facility] 05:14 PM Meet and greet completed 05:14 PM Sign in performed according to hospital policy. [facility] 05:14 PM Procedure start 17:14 [facility] 05:14 PM ASA Class CLASS II- Mild systemic disease (i.e. well-controlled diabetes, hypertension, asthma, cigarette smoking) [email or web address] 05:14 PM Time: 17:14 Patient comfortable and pain free: Yes elaine 05:14 PM Time: 17:14LOC: 5 = Fully awake and oriented or at pre-proc level [email or web address] 05:14 PM Time: 17:14 Oxygen on at 2 L/min per nasal cannula by Tere Garcia RN 05:14 PM Clinical Presentation: Non-STEMI david 05:16 PM CathStat 05:16 PM Vitals capture started with the following parameters, Patient=Adult, Interval=5 min, Initial Uybbwbiq=435 mmHg, Deflation Rate=5 mmHg, Cuff placed on Right Arm 05:17 PM HR=80 bpm, ZKNH=983/101 mmhg, SpO2=99.0 %, Comment=NSR 05:20 PM Time: 17:20 Versed 1 mg Intravenous Given by Tere Garcia RN 05:20 PM Time: 17:20 Fentanyl 50 mcg Intravenous Given by Tere Garcia RN 05:22 PM HR=71 bpm, VAHF=197/98 mmhg, OpD2=610.0 %, Comment=NSR 05:27 PM [place] noted to bilateral groins. [facility] 05:27 PM HR=77 bpm, GMPU=904/108 mmhg, WqV7=131.0 %, Resp=16 B/min, Comment=NSR 05:29 PM Pressure channel 1 zeroed. 05:30 PM Time out performed according to hospital policy [facility] 05:31 PM Time: 17:31 19 ml Lidocaine 1% to right groin Subcutaneous Given by [facility] 05:31 PM Micro-Introducer Kit utilized for sheath placement [facility] 05:32 PM HR=78 bpm, CHUW=922/94 mmhg, IcD6=565.0 %, Resp=12 B/min, Comment=NSR 05:32 PM Access obtained by percutaneous puncture. 6Fr 10cm Terumo [place] sheath placed in right Femoral artery. [id number] david 05:32 PM 4 ml contrast hand injected, images obtained of r. groin. david 05:33 PM 5Fr FR 4 catheter inserted over the wire [facility] david 05:35 PM RCA angiography performed in multiple views. [email or web address] 05:35 PM Catheter removed [email or web address] 05:35 PM 5Fr FL 4 catheter inserted over the wire DN jcallihan 05:36 PM Recorded Pressure: Ao, HR=80, Condition=Condition 1 (Aorta) Ao 149/102/124 05:37 PM LCA angiography performed in multiple views. [email or web address] 05:37 PM Recorded Pressure: Ao, HR=84, Condition=Condition 1 (Aorta) Ao 145/107/124 05:37 PM HR=86 bpm, OQGB=395/97 mmhg, YiU9=320.0 %, Resp=23 B/min, Comment=NSR 05:37 PM Coronary Dominance: Left [email or web address] 05:37 PM Catheter removed [email or web address] 05:37 PM 5Fr Pigtail catheter inserted over the wire [facility] jcallihan 05:38 PM Catheter selectively placed in left ventricle [email or web address] 05:38 PM Pressures obtained. [email or web address] 05:39 PM Recorded Pressure: LV, HR=96, Condition=Condition 1 (Left Ventricle) LV 172/27/29 05:39 PM Recorded Pressure: LV, Ao, HR=96, Condition=Condition 1 (Left Ventricle) LV 161/23/24, (Aorta) Ao 162/109/133 05:39 PM Catheter removed [email or web address] 05:39 PM Wire removed [email or web address] 05:40 PM Procedure completed at 17:40 [email or web address] 05:40 PM At 17:40 the ACT was 150 seconds. [email or web address] 05:40 PM Did you address PEG flow and Dominance? Yes [email or web address] 05:41 PM Sign out completed: Radiation Dose 258 mGy Fluoro Time: 1.5 Isovue 370 - 200ml contrast 35 ml given by Jesse Staley MD. Complications: NoneCardiac Rehab Consult needed: NoConfirmed administered medications: Yes [email or web address] 05:41 PM Isovue 370 - 200ml,1 Bottle(s) used. [email or web address] 05:42 PM HR=80 bpm, VXIM=889/92 mmhg, PxS4=587.0 %, Resp=16 B/min, Comment=NSR 05:42 PM Arterial sheath pulled, Mynx closure device used and was Successful [id number] S/N. [email or web address] 05:43 PM Estimated Blood Loss: minimal [email or web address] 05:43 PM Post ECG NSR [email or web address] 05:43 PM Post Blood Pressure 160/92 [email or web address] 05:43 PM 17:43 Post Pulses Bilateral DP & PT 2+ [email or web address] 05:43 PM Information taught Cardiac Cath and Mynx jcallihan 05:43 PM Education needs Procedure, Plan of Care, and Responsibilities of Patient in Care [email or web address] 05:43 PM Learning barriers :None [email or web address] 05:43 PM Education Methods Verbal [email or web address] 05:43 PM Education evaluation Able to repeat information [email or web address] 05:43 PM Site status No bleeding/hematoma - Rt Groin as reported by Connie Fox RT at 17:43 [email or web address] 05:43 PM Opsite applied [email or web address] 05:44 PM Plavix, Effient or Brilinta given No [email or web address] 05:45 PM Delay to floor No [email or web address] 05:45 PM Family placed in consult room. [email or web address] 05:45 PM Complications: None [email or web address] 05:45 PM Fluoro Time: 1.5 [email or web address] 05:45 PM Isovue 370 - 200ml contrast 35 ml given by Jesse Staley MD. [email or web address] 05:45 PM Radiation Dose 258 mGy [email or web address] 05:46 PM Report given to 3B RN Pt taken to 3B Room #33. 17:46 [email or web address] 05:50 PM Patient out of room: 17:50 [email or web address] Complications Complication None None Hemodynamics Pressures Site Systolic/A Wave Diastolic/V Wave Mean AO 149 102 124 AO 145 107 124 LV 172 27 29 LV 161 23 24 AO 162 109 133 Post Procedure Information Blood Pressure: 160/92 mmHg Rhythm: NSR Post procedural instructions were given Closure Device Time Device Success/Fail 11/30/2017 5:46:00 PM MynxGrip Successful Site Checks Time Location Status Staff Sheath In? Note 05:43 PM Rt Groin No bleeding/hematoma Connie Fox RT Pulses Time Site Pre-Procedure Post-Procedure Note Bilateral DP & PT 2+ Bilateral radial 2+ 5:43:00 PM Bilateral DP & PT 2+ Updated by Aries Reed, BHARAT on 11/30/2017 5:50:43 PM electronically signed on 11/30/2017 5:51:11 PM with status of Final
--- NOTE | 2017-11-30 18:15 | Event Note ---
Date of Encounter: 11/30/17 Time of Encounter: 18:00 - Cardiology Event Note LHC completed. Shows angiographically normal coronary arteries. TTE shows preerved EF. Mild troponin elevation of unclear significance. Noted to have elevated b/p up do 153/100. Continue risk factor modification. Continue asa and bb. Statin for HLD. No indication for cardiac rehab. Cardiology will sign off. Out patient f/u with PCP and cardiology PRN. Call with questions.
[2017-11-30] MEDS ORDERED: FLUoxetine 20 MG CAPSULE PO SCH (21:00)
[2017-12-01] MEDS: *HR* Heparin 5,000 UNIT/ML VIAL SQ SCH ×2 (06:05→17:28)
[2017-12-01 06:13] LABS: Hemoglobin A1C 5.1 %
[2017-12-01] MEDS: Aspirin Enteric Coated 81 MG Tablet PO SCH (08:30)
[2017-12-01] MEDS ORDERED: Nystatin POWDER 30 GM BOTTLE TP SCH (09:00)
[2017-12-01 15:06] VITALS: BP 107/75
--- NOTE | 2017-12-01 17:37 | Discharge Summary ---
Date of Encounter: 12/01/17 Time of Encounter: 17:20 - Discharge Diagnosis (1) Anxiety Priority: Primary Status: Chronic Comments: Chronic. Well-controlled. Continue your home medications. (2) Axillary lymphadenopathy Priority: Secondary Status: Acute Comments: Patient noted to have mildly asymmetric right breast glandular tissue compared with the left. Progress note from yesterday indicates that ultrasound was ordered and pending. It is not been ordered, not is pending. Patient denies pain. No fever no chills no leukocytosis. There is no mass palpable, no obvious retraction of nipple or dimpling of skin. Patient will follow up with primary care or [facility] for mammogram on an outpatient basis. Chest CTA 11/28/17 23:37 IMPRESSION: No evidence of an acute aortic syndrome. No acute nonvascular findings in the chest, abdomen or pelvis. Mild mediastinal lymphadenopathy, right supraclavicular and axillary lymph lymphadenopathy is nonspecific. Prior comparison imaging would be helpful available. Otherwise consider follow-up imaging in 3 months. Mildly asymmetric right breast glandular tissues compared with the left. Correlate with mammography. Mild hepatosplenomegaly with hepatic steatosis. D/ / Gianluca Alcala / Gianluca Alcala Interpreting Provider: Gianluca Alcala Abdomen/Pelvis CTA 11/28/17 23:38 IMPRESSION: No evidence of an acute aortic syndrome. No acute nonvascular findings in the chest, abdomen or pelvis. Mild mediastinal lymphadenopathy, right supraclavicular and axillary lymph lymphadenopathy is nonspecific. Prior comparison imaging would be helpful available. Otherwise consider follow-up imaging in 3 months. Mildly asymmetric right breast glandular tissues compared with the left. Correlate with mammography. Mild hepatosplenomegaly with hepatic steatosis. D/ / Gianluca Alcala / Gianluca Alcala Interpreting Provider: Gianluca Alcala (3) Chest pain Priority: Secondary Status: Acute Comments: Patient denies chest pain at this time. She has been chest pain-free since yesterday. Patient had elevated troponin of unknown etiology. LHC completed yesterday shows angiographically normal coronary arteries. Echo shows preserved EF. Patient is found to be mildly hypertensive at times. She has been evaluated by cardiology who recommended continuing risk factor modification. She will continue aspirin, statin, beta florentino. Prescriptions have been called to her pharmacy. Areas no need for any further testing and cardiology signed off. Qualifiers: Chest pain type: precordial pain Qualified Code(s): R07.2 - Precordial pain (4) Chest pain at rest Priority: Secondary Status: Acute (5) DVT prophylaxis Priority: Secondary Status: Acute Comments: Patient was on a heparin drip. It has been discontinued. (6) HTN (hypertension) Priority: Secondary Status: Chronic Comments: Chronic. Continue home medications. Well controlled in hospital setting. Qualifiers: Hypertension type: essential hypertension Qualified Code(s): I10 - Essential (primary) hypertension (7) NSTEMI (non-ST elevated myocardial infarction) Priority: Secondary Status: Resolved Comments: Patient with unclear etiology of elevated troponin, [facility] with angiographically normal coronary arteries. - Discharge Medications Prescriptions: Atorvastatin Calcium [Lipitor] 20 mg PO HS #30 tablet Metoprolol [Lopressor] 25 mg PO BID #60 tablet Nystatin POWDER [Nystop] 1 appl TP BID PRN #1 bottle PRN Reason: Itching Home Medications: Aspirin [Lo-Dose Aspirin EC] 81 mg PO DAILY 08/11/17 [History] FLUoxetine HCl [Fluoxetine HCl] 40 mg PO DAILY 08/11/17 [History] HydrOXYzine 25 mg PO BID PRN 08/11/17 [History] Atorvastatin Calcium [Lipitor] 20 mg PO HS #30 tablet 12/01/17 [Rx] Metoprolol [Lopressor] 25 mg PO BID #60 tablet 12/01/17 [Rx] Nystatin POWDER [Nystop] 1 appl TP BID PRN #1 bottle 12/01/17 [Rx] Allergies/Adverse Reactions: 3 Allergy/AdvReac Type Severity Reaction Status Date / Time Penicillins Allergy Intermediate Rash Verified 11/29/17 00:13 Erythromycin Base Allergy Rash Verified 11/29/17 00:13 [From Erythrocin] Procedures/tests Complete & Pending: Procedures Performed prior 72 hours Category Date Time Status CL Cardiac Catheterization [CL] Routine Assistant County Attorney 11/30/17 10:48 Completed EV echocardiogram w enhance Routine Y 11/30/17 07:30 Completed Date of admission: 11/29/17 02:51 Primary care physician: Sierra Sales CNP Consults: 11/29/17 12:56 Consult to Cardiology [CONS] Routine Comment: Consulting Provider: Cardiology Evy Reason for Consult: chest pain. elevated trop Call Completed: Yes Discharging clinician: Shavonne Burgess Anticipated date of discharge: 12/01/17 - Patient Status Disposition: Home, Self-Care Condition: Good Functional capacity at discharge: independent ambulation Overall status at discharge: patient is back to baseline - Discharge Instructions Follow Up With: Sierra Sales CNP [Primary Care Provider] - Additional Instructions: Follow-up with your primary care provider for a follow-up visit. See her within 7-10 days. Follow-up with your [facility] for mammogram. Prescriptions have been called in to your pharmacy. Please return to the emergency department as needed for any other problems or concerns, or if your symptoms return or worsen. Take your medications daily as written. Return to your normal daily activities and diet as tolerated. - Diet and Activity Activity: increase activity as tolerated Diet: advance to your usual diet Hospital course: Ms. Springer is a 52 year old female with past medical history of hypertension, anxiety. Patient presented with chest pain. Patient elevated troponins. LHC was negative for CAD, no intervention. TTE showed preserved EF. Unclear etiology of elevated troponin. Continue aspirin, statin, beta florentino at home. Labs and vitals are stable and within normal limits. Patient with abnormal findings in breast tissue on CAT scan. Primary note says ultrasound ordered, it was not ordered. Patient is agreeable to follow up outpatient for mammography. Patient is appropriate and stable for discharge. - Time Spent with Patient Total time spent providing and/or coordinating discharge services: Less than 30 minutes - Constitutional Vitals: Temp Pulse Resp BP Pulse Ox 98.0 F 66 17 107/75 97 12/01/17 15:05 12/01/17 15:05 12/01/17 15:05 12/01/17 15:05 12/01/17 15:05 General appearance: Present: cooperative, A&O X 3, morbidly obese, no acute distress, answers questions appropriately - Head Head exam: Present: atraumatic, normal inspection, normocephalic - Eye Eye exam: Present: normal appearance, conjuntiva pink, sclera anicteric - Neck Neck exam general surgery: Present: supple, trachea midline. Absent: lymphadenopathy, tenderness - Respiratory Respiratory exam: Present: CTAB. Absent: accessory muscle use, rales, rhonchi, wheezes - Cardiovascular Cardiovascular exam: Present: RRR, +S1, +S2. Absent: diastolic murmur, gallop, rubs, systolic murmur - GI/Abdominal GI/Abdominal exam: Present: normal bowel sounds, soft. Absent: distended, hepatomegaly, tenderness - Extremities Exam Extremities exam: Present: normal capillary refill, normal inspection, warm, radial pulses palpable and symmetrical. Absent: calf tenderness, cyanotic, pedal edema, tenderness - Neurological Exam Neurological exam: Present: alert, oriented X3, no focal deficits. Absent: altered, facial droop, speech deficit - Skin Skin exam: Present: dry, intact, normal color, warm. Absent: rash
== END 2017-12-01 18:40 | disposition home or self-care (01) ==
LOC: 3BNU 22:17 → EMEROO 22:17 → 3BNU 11-29 03:40
PROVIDERS: ADMIT Internal Medicine Hematology & Oncology; ATTEND Registered Nurse